=== PATIENT | female | born 1955 | race Caucasian/White ===

== ENCOUNTER 2021-02-14 10:18 | Outpatient (CLI) | payer MEDICARE, SELFPAY ==
[2021-02-14 10:38] LABS: Add Urine Microscopic? YES; Appearance Urine Clear (Clear); Bilirubin Urine Negative (Negative); Blood Urine Negative (Negative); Color Urine Red (Yellow); Glucose Urine UA Negative (Negative); Ketones Urine Trace (Negative); Leukocyte Esterase Ur 2+ LEU/UL (Negative); Nitrate Urine Negative (Negative); Protein Urine Trace (Negative); Specific Grav Ur 1.025 (1.010-1.020); Urobilinogen Urine 0.2 mg/dL (0.2-1.0)
[2021-02-14 10:46] LABS: Bacteria Urine 1+ /hpf; RBC Urine None seen /hpf (0-2); Squamous Epithelial Cell Urine Few /hpf (Few)
[2021-02-14 10:52] LABS: Hemoglobin A1C 6.1 % (<5.7)
[2021-02-14 11:17] LABS: Alanine Aminotransferase 38 U/L (14-59); Albumin Level 4.1 g/dL (3.4-5.0); Alkaline Phosphatase 95 U/L (46-116); Anion Gap 14 mmol/L (8-16); Aspartate Amino Transferase 17 U/L (15-37); Bilirubin,Total 0.9 mg/dL (0.00-1.00); Blood Urea Nitrogen 12 mg/dL (7-18); Calcium 8.7 mg/dL (8.5-10.1); Carbon Dioxide 27 mmol/L (21-32); Chloride 104 mmol/L (98-108); Cholesterol 208 mg/dL (0-200); Estimated Glomerular Filt Rate > 60; Glucose 128 mg/dL (70-99); HDL Direct 75 mg/dL (40-60); LDL Cholesterol Calculated 110 mg/dL (<130); Osmolality Calculated 301 mOsm/kg (285-295); Potassium 4.2 mmol/L (3.5-5.1); Sodium 145 mmol/L (136-145); Total Protein 7.3 g/dL (6.4-8.2); Triglycerides 113 mg/dL (0-150)
== END 2021-02-14 10:19 | disposition home or self-care (01) ==
LOC: CHSLAB 10:22
PROVIDERS: PCP Family Medicine; Visit Provider Nurse Practitioner Family
DX: E11.9 Type 2 diabetes mellitus without complications (principal); N39.41 Urge incontinence
CPT/HCPCS: 36415; 80053; 80061; 81001; 83036; 87086; 87088

== ENCOUNTER 2021-02-18 08:18 | Outpatient (CLI) | payer MEDICARE, SELFPAY ==
--- NOTE | ~2021-02-18 | MM_ITS ---
EXAMINATION: MM screening radha BI w debi HISTORY: Screening mammogram TECHNIQUE: Craniocaudal and mediolateral oblique 3-D tomosynthesis images were obtained and synthetic 2-D images were generated. CAD analysis was submitted and interpreted. COMPARISON: 05/03/2018 diagnostic left mammogram and left breast ultrasound examination 04/20/2018 bilateral digital screening mammogram BREAST PARENCHYMAL COMPOSITION: There are scattered areas of fibroglandular density. FINDINGS: There is no evidence of suspicious mass, calcification, or architectural distortion to sugg est malignancy in either breast. There has been no suspicious interval change. IMPRESSION: 1. No mammographic evidence of malignancy. 2. Recommend routine screening mammography in one year. BI-RADS Category 1: Negative Reviewed, dictated and finalized at location A.
== END 2021-02-18 08:19 | disposition home or self-care (01) ==
LOC: CHSIMG 08:20
PROVIDERS: PCP Family Medicine; Visit Provider Family Medicine
DX: Z12.31 Encounter for screening mammogram for malignant neoplasm of breast (principal)
CPT/HCPCS: 77063; 77067

== ENCOUNTER 2021-05-14 14:09 | Outpatient (CLI) | payer MEDICARE, SELFPAY ==
--- NOTE | 2021-05-14 14:12 | ECG_ITS ---
Measurements Intervals [place] Rate: 73 P: 75 [place]: 174 QRS: 75 QRSD: 83 T: 63 QT: 375 QTc: 415 Interpretive Statements SINUS RHYTHM BASELINE ARTIFACT- I, II, III NORMAL ECG Electronically Signed On 05-14-2021 15:09:19 CDT by Napoleon Ponce D.O.
[2021-05-14 14:24] LABS: Basophils Absolute Auto 0.05 K/mm3 (0.00-0.10); Basophils Percent Auto 0.6 % (0.0-1.0); Eosinophils Absolute Auto 0.25 K/mm3 (0.02-0.50); Eosinophils Percent Auto 3.2 % (1.0-6.0); Hematocrit 46.1 % (35.0-42.0); Hemoglobin 15.3 g/dL (11.7-13.8); Immature Granulocyte Absolute 0.01 K/mm3 (0.00-0.00); Immature Granulocyte Percent A 0.1 % (0.0-0.0); Lymphocytes Absolute Auto 2.41 K/mm3 (1.10-4.50); Mean Corpuscular HGB Conc 33.2 g/dL (32.0-36.0); Mean Corpuscular Hemoglobin 30.3 pg (27.0-31.0); Mean Corpuscular Volume 91.3 fL (78.0-102.0); Mean Platelet Volume 9.4 fl (9.2-11.8); Monocytes Absolute Auto 0.53 K/mm3 (0.10-0.90); Monocytes Percent Auto 6.8 % (2.0-11.0); Neutrophils Absolute Auto 4.5 K/mm3 (1.7-7.2); Neutrophils Percent Auto 58.3 % (50.0-70.0); Platelet Count Result 280 K/mm3 (150-420); Red Blood Count 5.05 M/mm3 (4.20-5.40); Red Cell Distribution Width 12.6 % (11.6-14.4); White Blood Count 7.8 K/mm3 (4.8-10.8)
[2021-05-14 14:59] LABS: Hemoglobin A1C 6.2 % (<5.7)
[2021-05-14 15:02] LABS: Alanine Aminotransferase 47 U/L (14-59); Albumin Level 4.4 g/dL (3.4-5.0); Alkaline Phosphatase 101 U/L (46-116); Anion Gap 11 mmol/L (8-16); Aspartate Amino Transferase 14 U/L (15-37); Bilirubin,Total 0.8 mg/dL (0.00-1.00); Blood Urea Nitrogen 14 mg/dL (7-18); Calcium 9.1 mg/dL (8.5-10.1); Carbon Dioxide 28 mmol/L (21-32); Chloride 105 mmol/L (98-108); Cholesterol 234 mg/dL (0-200); Estimated Glomerular Filt Rate 50; Glucose 95 mg/dL (70-99); HDL Direct 74 mg/dL (40-60); LDL Cholesterol Calculated 132 mg/dL (<130); Osmolality Calculated 298 mOsm/kg (285-295); Potassium 4.1 mmol/L (3.5-5.1); Sodium 144 mmol/L (136-145); Total Protein 7.7 g/dL (6.4-8.2); Triglycerides 140 mg/dL (0-150)
== END 2021-05-14 14:10 | disposition home or self-care (01) ==
LOC: CHSLAB 14:12
PROVIDERS: PCP Nurse Practitioner Family; Visit Provider Nurse Practitioner Family
DX: E11.9 Type 2 diabetes mellitus without complications (principal); Z01.818 Encounter for other preprocedural examination; E78.5 Hyperlipidemia, unspecified
CPT/HCPCS: 36415; 80053; 80061; 83036; 85025; 93005

== ENCOUNTER 2023-09-09 09:38 | Outpatient (CLI) | payer MEDICARE, SELFPAY ==
--- NOTE | ~2023-09-09 | CT_ITS ---
CT of the Abdomen and Pelvis: Indication: Abdominal pain Technique: 2.5 mm axial scans were obtained through the abdomen and pelvis following intravenous adm inistration of 100 cc of Omnipaque 350. Dose reduction technique was used on this scan by utilizing a utomated exposure control and iterative reconstruction technique. The dose-length product (DLP) was 8 40.72 mGy-cm. Findings: Scans through the lung bases are unremarkable. The liver, spleen, pancreas, gallbladder, and kidneys are within normal limits. There is a 2.5 cm lef t adrenal nodule, as well as a smaller 1.1 cm left adrenal nodule. There are at least 2 right adrenal nodule measuring approximately 1 cm in greatest diameter. No evidence of aortic aneurysm. No lympha denopathy. There is inflammatory change and wall thickening centered about a sigmoid diverticulum, compatible wi th acute diverticulitis. No abscess or free air. No bowel obstruction. Images through the pelvis were performed. Urinary bladder unremarkable. No definite adnexal mass seen . Questionable prominence of the endometrial stripe. Impression: Acute sigmoid diverticulitis. No abscess or free air. Multiple bilateral adrenal nodules, indeterminate by Hounsfield units. Statistically, these are most likely adrenal adenomas. Consider noncontrast MR to attempt to confirm, as indicated. Questionable prominence of the endometrium. Consider pelvic ultrasound to further evaluate for endome trial thickening. Reviewed, dictated and finalized at [facility]. CHANGER Impression: Acute sigmoid diverticulitis. No abscess or free air. Multiple bilateral adrenal nodules, indeterminate by Hounsfield units. Statisti alana, these are most likely adrenal adenomas. Consider noncontrast MR to attem pt to confirm, as indicated. Questionable prominence of the endometrium. Consider pelvic ultrasound to furth er evaluate for endometrial thickening.
[2023-09-09 09:50] LABS: Basophils Absolute Auto 0.06 K/mm3 (0.00-0.10); Basophils Percent Auto 0.6 % (0.0-1.0); Eosinophils Absolute Auto 0.26 K/mm3 (0.02-0.50); Eosinophils Percent Auto 2.8 % (1.0-6.0); Hematocrit 45.8 % (35.0-42.0); Hemoglobin 15.6 g/dL (11.7-13.8); Immature Granulocyte Absolute 0.02 K/mm3 (0.00-0.00); Immature Granulocyte Percent A 0.2 % (0.0-0.0); Lymphocytes Absolute Auto 1.81 K/mm3 (1.10-4.50); Lymphocytes Percent Auto 19.5 % (18.0-42.0); Mean Corpuscular HGB Conc 34.1 g/dL (32.0-36.0); Mean Corpuscular Hemoglobin 30.5 pg (27.0-31.0); Mean Corpuscular Volume 89.5 fL (78.0-102.0); Mean Platelet Volume 9.1 fl (9.2-11.8); Monocytes Percent Auto 5.4 % (2.0-11.0); Neutrophils Absolute Auto 6.6 K/mm3 (1.7-7.2); Neutrophils Percent Auto 71.5 % (50.0-70.0); Platelet Count Result 311 K/mm3 (150-420); Red Blood Count 5.12 M/mm3 (4.20-5.40); Red Cell Distribution Width 12.1 % (11.6-14.4); White Blood Count 9.3 K/mm3 (4.8-10.8)
[2023-09-09 10:54] LABS: Alanine Aminotransferase 27 U/L (14-59); Alkaline Phosphatase 109 U/L (46-116); Anion Gap 11 mmol/L (8-16); Aspartate Amino Transferase 18 U/L (15-37); Bilirubin,Total 1.2 mg/dL (0.00-1.00); Blood Urea Nitrogen 13 mg/dL (7-18); CRP 4.1 mg/dL (0.0-0.9); Carbon Dioxide 29 mmol/L (21-32); Chloride 101 mmol/L (98-108); Estimated Glomerular Filt Rate 48; Glucose 172 mg/dL (70-99); Lipase 24 U/L (16-77); Osmolality Calculated 296 mOsm/kg (285-295); Potassium 4.3 mmol/L (3.5-5.1); Sodium 141 mmol/L (136-145); Total Protein 7.7 g/dL (6.4-8.2)
== END 2023-09-09 09:39 | disposition home or self-care (01) ==
PROVIDERS: PCP Family Medicine; Visit Provider Family Medicine
DX: R10.9 Unspecified abdominal pain (principal); R35.0 Frequency of micturition; K57.92 Diverticulitis of intestine, part unspecified, without perforation or abscess without bleeding; E27.9 Disorder of adrenal gland, unspecified
CPT/HCPCS: 36415; 74177; 80053; 83690; 85025; 86140; 87086; 87088; Q9967

== ENCOUNTER 2023-10-15 07:25 | Outpatient (CLI) | payer MEDICARE, SELFPAY ==
--- NOTE | ~2023-10-15 | US_ITS ---
Pelvic ultrasound. Clinical History: Thickened endometrial complex Technique: Realtime transabdominal scanning of the pelvis was performed. Color flow Doppler and Doppl er spectral analysis were performed. Findings: The uterus is anteverted. The endometrial stripe is poorly delineated, possibly measuring up to approximately 17 mm. No focal mass is identified. The right ovary measures 2.9 x 1.8 x 2.3 cm. No significant right ovarian or adnexal mass is seen. The left ovary is not visualized. No significant left ovarian or adnexal mass is seen. There is no evidence of free fluid in the cul de sac. Impression: Probable thickened endometrial stripe, measuring up to approximate 17 mm. Endometrial hyperplasia or endometrial neoplasm are considerations. Reviewed, dictated and finalized at location M. Impression: Probable thickened endometrial stripe, measuring up to approximate 17 mm. Endom etrial hyperplasia or endometrial neoplasm are considerations.
--- NOTE | ~2023-10-15 | MR_ITS ---
EXAMINATION: MR abdomen wo con DATE: 10/15/2023 08:54 INDICATION: Abdominal pain. Disorder of adrenal gland. TECHNIQUE: Magnetic resonance imaging (MRI) of the abdomen was performed without intravenous contrast . Sequences included coronal T2-weighted SS-FSE, coronal and axial FS 2D-FIESTA, axial STIR FSE, axi al T2-weighted SS-FSE, axial T2-weighted FS SS-FSE, axial diffusion-weighted SE, axial dual-echo T1-w eighted FSPGR, and axial and coronal T1-weighted LAVA. COMPARISON: CT dated 09/09/2023 FINDINGS: Heart size is normal. No pericardial or pleural effusion. Liver, gallbladder, spleen, pancreas and ri ght kidney are normal. 12 mm parapelvic cyst at the left renal hilum. 2.2 x 2.0 cm left adrenal mass with signal dropout on opposed phase images consistent with adrenal adenoma. There is also signal rosendo pout consistent with adenomas associated with the pair of smaller approximately 1 cm right adrenal no dules. Bowels are unremarkable with no obstruction. Normal appendix. No pathologically enlarged abdom inal or upper pelvic lymphadenopathy. Mild lumbar levocurvature with mild spondylosis. IMPRESSION: 1. Bilateral adrenal adenomas with diagnostic signal dropout on opposed phase imaging. Reviewed, dictated and finalized at location A. IMPRESSION: 1. Bilateral adrenal adenomas with diagnostic signal dropout on opposed phase i maging.
== END 2023-10-15 07:26 | disposition home or self-care (01) ==
LOC: CHSIMG 07:26
PROVIDERS: PCP Family Medicine; Visit Provider Family Medicine
DX: R93.89 Abnormal findings on diagnostic imaging of other specified body structures (principal); E27.8 Other specified disorders of adrenal gland
CPT/HCPCS: 74181; 76856

== ENCOUNTER 2023-12-07 05:50 | Day surgery (SDC) | payer MEDICARE, SELFPAY ==
[2023-09-24 14:18] VITALS: BMI 32.8
[2023-12-07 06:27] VITALS: BMI 32.6
[2023-12-07 06:30] VITALS: BP 142/95; PULSE 70; RESP 16; TEMP 36.2; O2SAT 99
--- NOTE | 2023-12-07 07:30 | PM.IMHP ---
H&P: HPI History of Present Illness Date/Time: 12/07/23 07:30 Chief Complaint: diverticulitis Narrative: 68 yo woman presents for colonoscopy. She has had cologuard tests before but never a colonoscopy. Denies hematochezia/melena. No fam hx colon cancer. Review of Systems Review of Systems: All systems reviewed & are unremarkable except as noted in HPI and below Constitutional: Constitutional: Denies chills, Denies fever(s), Denies headache(s) and Denies weight loss Eyes: Eyes: Denies change in vision ENT: Denies dizziness, Denies headache(s), Denies neck mass and Denies throat swelling Cardiovascular: Cardiovascular: Denies chest pain, Denies lightheadedness and Denies dyspnea Respiratory: Respiratory: Denies cough, Denies dyspnea and Denies wheezing Gastrointestinal: Gastrointestinal: Denies abdominal pain, Denies change in bowel habits, Denies nausea and Denies vomiting Genitourinary: Genitourinary: Denies hematuria and Denies dysuria Musculoskeletal: Musculoskeletal: Reports as per HPI Integumentary/Breasts: Skin/Breast: Reports as per HPI Neurologic: Denies dizziness and Denies headache(s) Allergic/Immunologic: Allergic/Immunologic: Denies throat swelling and Denies wheezing PMFSH Past Medical History Medical History Breast mass in female (04/22/18) Closed fracture of base of fifth metatarsal bone of right foot (06/15/15) Hyperlipidemia (04/26/18) Retinal detachment of right eye with multiple breaks surgically reattached: Dr. Edi Givens Occurred summer() 2020 Skin tags, multiple acquired Family History Family History Mother Bone cancer Father , from old age. 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 Spiritual care concerns: No Meds Home Medications and Allergies Home Medications Medication Instructions Recorded Confirmed Type multivitamin 1 tablet PO DAILY 08/20/21 12/07/23 History Allergies Allergy/AdvReac Type Severity Reaction Status Date / Time hydrocodone AdvReac Mild Dizziness Verified 12/07/23 06:18 Vital Signs Vital Signs - 24 hr 12/07/23 06:30 Temperature 36.2 C L Pulse Rate 70 Respiratory Rate 16 Blood Pressure 142/95 H Pulse Oximetry 99 Oxygen Delivery Room Air Exam Const: General: no acute distress and alert Orientation/consciousness: patient oriented x3 HENMT: Head: normocephalic and atraumatic Ears: hearing grossly normal bilaterally Face/Nose/Sinus: Normal nares present Mouth: Yes Normal oral and palatal mucosa present Eyes: Periorbital: periorbital findings normal Sclera: sclerae normal EOM: EOMs intact bilaterally Neck: Neck: normal visual inspection, no lymphadenopathy and trachea midline Chest: Chest palpation & inspection: normal inspection of the chest Resp: Effort & Inspection: normal respiratory effort Auscultation: clear to auscultation bilaterally Cardio: Jugular venous distension: no JVD Rate: regular rate Rhythm: regular rhythm Heart sounds: S1 normal heart sound present and S2 normal heart sound present Peripheral pulses: Peripheral pulses 2+ throughout GI: Inspection: normal to inspection GI Palp: Yes Soft to palpation, No Tenderness to palpation present (GI), No Guarding due to palpation present (GI) and No Rebound tenderness
[2023-12-07] MEDS: LACTATED RINGERS 1,000 ML 150 ML IV CONT (07:35)
--- NOTE | 2023-12-07 07:36 | WPDANESEPPF ---
Anes - Initial Pre Proc Eval Procedure: Operation Date: 12/07/23 07:30 Proposed Procedures p Diagnostic Colonoscopy - Bari Bear DO Date/Time: 12/07/23 07:36 Surgeon: Bari Bear DO Pre Op Diagnosis: Diverticulitis w/o perforation or abscess wo bleed Patient Data Age: 68 Gender: F Height: 1.65 m Weight: 89.1 kg Last Vital Signs Temp 36.2 C L 12/07/23 06:30 Pulse 70 12/07/23 06:30 Resp 16 12/07/23 06:30 BP 142/95 H 12/07/23 06:30 Pulse Ox 99 12/07/23 06:30 O2 Del Method Room Air 12/07/23 06:30 Allergies Allergy/AdvReac Type Severity Reaction Status Date / Time hydrocodone AdvReac Mild Dizziness Verified 12/07/23 06:18 Home Medications Medication Instructions Recorded Confirmed Type multivitamin 1 tablet PO DAILY 08/20/21 12/07/23 History Patient hx anesthesia problems: none Family hx anesthesia problems: none Results Review: All pre-operative results and documents have been reviewed as part of the pre-operative evaluation. [facility] Past Medical History Medical History Breast mass in female (04/22/18) Closed fracture of base of fifth metatarsal bone of right foot (06/15/15) Hyperlipidemia (04/26/18) Retinal detachment of right eye with multiple breaks surgically reattached: Dr. Edi Givens Occurred summer() 2020 Skin tags, multiple acquired Family History Family History Mother Bone cancer Father , from old age. 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 Informed Consent: The patient's anesthetic plan and its attendant risks and benefits were discussed with the patient/family/POA. Questions were solicited and answers provided to the satisfaction of the patient/family/POA.
[2023-12-07 08:00] VITALS: BP 127/72; PULSE 72; RESP 16; O2SAT 94
[2023-12-07 08:10] VITALS: BP 110/70; PULSE 77; RESP 16; O2SAT 100
[2023-12-07 08:20] VITALS: BP 106/67; PULSE 57; RESP 16; O2SAT 100
--- NOTE | 2023-12-07 09:09 | WPDANESPN ---
Anes - Prog Note Post-Op Date/Time: 12/07/23 09:09 Cardiovascular status: normal Respiratory status: normal Airway patency: baseline Mental status: baseline Post-Op hydration status: normal Vital Signs: Last Vital Signs Temp 36.2 C L 12/07/23 06:30 Pulse 57 L 12/07/23 08:20 Resp 16 12/07/23 08:20 BP 106/67 12/07/23 08:20 Pulse Ox 100 12/07/23 08:20 O2 Del Method Room Air 12/07/23 08:20 Pain Score (VAS): 0 I/O: Intake & Output 12/06/23 12/07/23 12/07/23 23:59 07:59 15:59 Intake Total 300 300 Balance 300 300 Patient Feedback: Patient satisfied with anesthetic care.
== END 2023-12-07 08:39 | disposition home or self-care (01) ==
PROVIDERS: PCP Family Medicine; Visit Provider Surgery
PROC: 0DJD8ZZ Inspection of Lower Intestinal Tract, Via Natural or Artificial Opening Endoscopic (ICD-10-PCS; CPT 45378; principal; 2023-12-07 07:30)
DX: K57.92 Diverticulitis of intestine, part unspecified, without perforation or abscess without bleeding (principal); K57.30 Diverticulosis of large intestine without perforation or abscess without bleeding
CPT/HCPCS: 45378

== ENCOUNTER 2023-12-16 00:23 | Day surgery (SDC) | payer MEDICARE, SELFPAY ==
[2023-12-02 11:24] VITALS: BMI 33.9
--- NOTE | 2023-12-02 11:44 | PC.NURSE ---
Report to the Outpatient Waiting Room, entrance under the green pavilion located off [facility], at time __6:00AM on date __12/16/23 . Planned Procedure Time: ___7:30AM . Time changes happen often and if your time is changed the preop area will call you the afternoon before. - You and your visitor will be asked to self-screen and do not enter if you have any COVID symptoms. - A mask is optional within the hospital at this time. Patients may have clear liquids (water, carbonated beverages, clear teas, apple juice) until 3 hours prior to surgery with a maximum of 20 ounces. - No food from midnight until time of surgery - Infants may have breast milk until 4 hours before surgery, infant formula 6 hours prior to surgery. - Children will be allowed to drink immediately following surgery. If applicable, please bring a bottle or sippy cup to assist with drinking. Juice, water, soda, and popsicles are readily available. For infants on formula, please bring formula the day of surgery. Pacifiers are allowed. Take the following medications with a SIP of water the morning of surgery: ___NONE DO NOT STOP ANY OF YOUR OTHER PRESCRIPTION MEDICATIONS PRIOR TO SURGERY ?EXCEPT THE FOLLOWING Medications to discontinue per physician ___HOLD ALL VITAMINS/SUPPLEMENTS 3 DAYS PRE-OP PER ANESTHESIA Date to take last dose 12/12/23 Please no make-up, nail urdu, hairspray, perfume, deodorant, or body powder the day of surgery. No jewelry (including any body piercings) or valuables the day of surgery, leave them at home. Please take a shower or bath the night before, or the morning of, surgery with an antibacterial soap. Wear comfortable, loose fitting clothing. Children are encouraged to wear pajamas. - Jewelry must be removed prior to entering the operating room. Rings and piercings that are not removed may be cut off. - The hospital will not accept responsibility for valuables. - Please leave all valuables, including medications, at home the day of surgery. If you are going home after surgery, a licensed sanitation truck driver must drive you home. - NO public transportation without another adult if you receive anesthesia. - We recommend that an adult stay with you for 24 hours following discharge. - We also recommend that you do not drive, make important decision, drink alcoholic beverages, or take any drugs that were not prescribed by your health care provider for at least 24 hours after your discharge time. For Pediatric surgeries, we recommend two adults accompany the child home. Follow any additional instructions given to you from your surgeon. If you or anyone in your household have experienced Covid symptoms in the past week, please notify your surgeon or the nurse liaison at the phone number below for possible testing. Telephone instructions given to ____PATIENT and asked if any additional questions and then verbalized understanding. Patient advised to call surgeon office or pre surgery nurse liaison [phone] if any additional questions.
[2023-12-16 06:30] VITALS: BP 161/98; PULSE 49; RESP 14; TEMP 36.3; O2SAT 100
[2023-12-16] MEDS: LACTATED RINGERS 1,000 ML 30 ML IV CONT ×2 (06:30→08:09)
[2023-12-16] MEDS: ACETAMINOPHEN 500 MG TABLET 1000 MG PO (06:30)
--- NOTE | 2023-12-16 06:45 | WPDANESEPPF ---
Anes - Initial Pre Proc Eval Procedure: Operation Date: 12/16/23 07:30 Proposed Procedures p Hysteroscopy Dilation and Curettage with Removal of Any Endometrial Lesions, if Necessary - Martín Rodriguez MD Date/Time: 12/16/23 06:45 Surgeon: Martín Rodriguez MD Pre Op Diagnosis: Abnormal Finding on Ultrasound Patient Data Age: 68 Gender: F Height: 1.64 m Weight: 91 kg Allergies Allergy/AdvReac Type Severity Reaction Status Date / Time hydrocodone AdvReac Mild Dizziness Verified 12/07/23 06:18 Home Medications Medication Instructions Recorded Confirmed Type multivitamin 1 tablet PO DAILY 08/20/21 12/07/23 History Patient hx anesthesia problems: none Family hx anesthesia problems: none Results Review: All pre-operative results and documents have been reviewed as part of the pre-operative evaluation. [facility] Past Medical History Medical History Breast mass in female (04/22/18) Closed fracture of base of fifth metatarsal bone of right foot (06/15/15) Hyperlipidemia (04/26/18) Retinal detachment of right eye with multiple breaks surgically reattached: Dr. Edi Givens Occurred summer() 2020 Skin tags, multiple acquired Family History Family History Mother Bone cancer Father , from old age. 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 ) Neurological: alert and oriented Last oral intake: >/= 8 hours ASA classification: II Emergent: no Anesthetic plan: delay Anesthesia type and monitoring: general GIVS and standard monitoring Results Review: All pre-operative results and documents have been reviewed as part of the pre-operative evaluation. Informed Consent: The patient's anesthetic plan and its attendant risks and benefits were discussed with the patient/family/POA. Questions were solicited and answers provided to the satisfaction of the patient/family/POA.
--- NOTE | 2023-12-16 07:17 | WPDHPUPDATE1 ---
History and Physical Update Update Date/Time: 12/16/23 07:17 History and Physical has been reviewed, including an updated exam of the patient. There are NO changes in the patient's condition. Risks, benefits, and alternatives have been discussed and questions answered. Patient agrees to proceed with procedure. Will proceed with dilation and curettage and hysteroscopy and removal of any endometrial lesion if present.
[2023-12-16] MEDS: ceFAZolin 2 GM/D5W 50 ML 2 GM/50 ML BAG IVPB (07:28)
[2023-12-16] MEDS: LIDOCAINE HCL 1% LOCAL INJ 20 ML VIAL 10 ML INFILTRATE (07:38)
--- NOTE | 2023-12-16 07:57 | W.PM.PROC2 ---
Procedure Note - Detailed Date of Procedure 12/16/23 Pre-op Diagnosis Abnormal Finding on Ultrasound Post-op Diagnosis Other (2. Endometrial polyp 3. Endocervical polyp) Procedure Performed 1. Hysteroscopy with removal of endometrial lesion 2. Cervical polypectomy Surgeon Martín Rodriguez MD Anesthesia MAC and Local Indications Abnormal ultrasound finding. Findings 1cm cervical polyp, large endometrial lesion consistent with endometrial polyp, the rest of the cavity was atrophic Description of Procedure After informed consent was obtained patient was taken to the operating room and adequate IV sedation was administered. Attention was turned to the vagina. Speculum was inserted. Single-tooth tenaculum placed on the anterior lip of the cervix. 10cc of 1% lidocaine injected at cervicovaginal interface. The uterus was sounded to 6 cm. The cervix was dilated to a 4 payan dilator. The hysteroscope was inserted into the cavity. There was a large endometrial polyp in the uterine cavity. The polyp was removed with the Aveta instrument. Minimal tissue obtained with curettage. The hysteroscope was removed. The hysteroscope was removed the single-tooth tenaculum was removed hemostasis was noted at the tenaculum site. Sponge count correct. The patient taken to recovery in stable condition. Estimated Blood Loss 5 Drains No Packing No Pathology Yes (1. cervical polyp 2. Endometrial shavings/curettage) Complications No immediate complications Condition Stable Disposition Same day [facility] Billing Surgery - Charge Forward: Surgery Billing
[2023-12-16 08:00] VITALS: BP 130/57; PULSE 67; RESP 12; O2SAT 93
[2023-12-16 08:30] VITALS: BP 151/72; PULSE 49
== END 2023-12-16 08:55 | disposition home or self-care (01) ==
PROVIDERS: PCP Family Medicine; Visit Provider Obstetrics & Gynecology
PROC: 0U5B8ZZ Destruction of Endometrium, Via Natural or Artificial Opening Endoscopic (ICD-10-PCS; CPT 58563; principal; 2023-12-16 07:30)
DX: N84.1 Polyp of cervix uteri (principal); N84.0 Polyp of corpus uteri; Z87.891 Personal history of nicotine dependence; E66.9 Obesity, unspecified; Z68.33 Body mass index [BMI] 33.0-33.9, adult
CPT/HCPCS: 58558; 88305; A9270; J0690; J2405; J2704; J3010; J7120

== ENCOUNTER 2025-03-22 12:21 | Outpatient (CLI) | payer MEDICARE, SELFPAY ==
--- NOTE | ~2025-03-22 | XR_ITS ---
EXAMINATION: XR foot RT min 3V DATE: 03/22/2025 12:35 INDICATION: Pain in right foot TECHNIQUE: 4 images of the right foot were obtained. COMPARISON: None. FINDINGS: Mild joint space narrowing in the first metatarsophalangeal joint with adjacent soft tissue swelling. Bones appear osteopenic. No fracture. No dislocation. Moderate-sized plantar calcaneal spur. Moderate-sized dorsal spurs in the hindfoot with adjacent soft tissue swelling. IMPRESSION: 1. No fracture. No dislocation. 2. Mild joint space narrowing in the first metacarpophalangeal joint. 3. Moderate-sized plantar calcaneal spur. If symptoms persist or worsen, consider a short-term follow-up study or additional imaging for further assessment. Reviewed, dictated and finalized at location Q. IMPRESSION: 1. No fracture. No dislocation. 2. Mild joint space narrowing in the first metacarpophalangeal joint. 3. Moderate-sized plantar calcaneal spur. If symptoms persist or worsen, consider a short-term follow-up study or additio nal imaging for further assessment.
== END 2025-03-22 12:22 | disposition home or self-care (01) ==
LOC: CHSIMG 12:22
PROVIDERS: PCP Family Medicine; Visit Provider Family Medicine
DX: I10 Essential (primary) hypertension (principal); M79.671 Pain in right foot; M77.31 Calcaneal spur, right foot
CPT/HCPCS: 73630

== ENCOUNTER 2025-05-02 11:33 | Outpatient (CLI) | payer MEDICARE, SELFPAY ==
[2025-05-02 11:46] LABS: Hematocrit 44.5 % (35.0-42.0); Hemoglobin 14.7 g/dL (11.7-13.8); Immature Granulocyte Percent A 0.2 % (0.0-0.0); Lymphocytes Absolute Auto 2.05 K/mm3 (1.10-4.50); Mean Corpuscular HGB Conc 33.0 g/dL (32-36); Mean Corpuscular Hemoglobin 30.1 pg (27.0-31.0); Mean Corpuscular Volume 91.2 fL (78.0-102.0); Nucleated Red Blood Cells Absolute Auto 0.00 K/mm3 (0.00-0.00); Nucleated Red Blood Cells Perc 0.0 % (0-0.0); Platelet Count Result 245 K/mm3 (150-420); Red Blood Count 4.88 M/mm3 (4.20-5.40); White Blood Count 5.8 K/mm3 (4.8-10.8)
[2025-05-02 12:02] LABS: MALB Creatinine Ratio 6.4 mg/g (0-30)
[2025-05-02 12:16] LABS: Hemoglobin A1C 10.0 % (<5.7)
--- OUTSIDE RECORDS SUMMARY | 2025-05-02 12:50 | XMS_ITS | Clinical Summary ---
Author Organization [facility] Address [address] [place] [address] Care Team Providers Care Fundraising Sale Representative Name Role Phone Chivo Ludwig DO Primary Care Provider Allergies No known active allergies Medications Multiple Vitamin (MULTIVITAMIN ADULT OR)Indications: Nutritional Support Take 1 tablet by mouth daily. Indications: Nutritional Support Active NON FORMULARYIndica tions:Insomnia Take 1 tablet by mouth as needed. Indications: Trouble Sleeping THC tab for sleep Active Active Problems No known active problems Family History Medical History Relation Comments Heart Disease Father Cancer Mother Relation Status Comments Father Mother Alive Social History Tobacco Use Types Packs/Day Years Used Date Smoking Tobacco: Former Cigarettes Smokeless Tobacco: Never Comments:quit late Alcohol Use Standard Drinks/Week Comments Yes 0 (1 standard drink = 0.6 oz pur e alcohol) occ Comments Unknown Sex and Gender Information Value Date Recorded Sex Assigned at Not on file Legal Sex Female 12:02 PM CDT Gender Identity Not on file Sexual Orientation Not on file Last Filed Vital Signs Vital Sign Reading Time Taken Comments Blood Pressure 110/68 05/15/2021 12:20 PM CDT Pulse 66 05/15/2021 12:20 PM CDT Temperature 36 C (96.8 F) 05/15/2021 10:55 AM CDT Respiratory Rate 16 05/15/2021 12:20 PM CDT Oxygen Saturation 97% 05/15/2021 12:20 PM CDT Inhaled Oxygen Concentration - - Weight 90.7 kg (200 lb) 05/14/2021 2:49 PM CDT Height 167.6 cm (5' 6) 05/14/2021 2:49 PM CDT Body Mass Index 32.28 05/14/2021 2:49 PM CDT Plan of Treatment Health Maintenance Due Date Last Done Comments Colorectal Cancer Screening Colonoscopy (10 Years) 1955 Hepatitis C 1971 DTaP, Tdap and Td Vaccines ( 1 - Tdap) 02/10/1972 Mammogram Screening 1993 Pneumococcal Vaccine: 50+ Years (1 of 1 - PCV) 2003 Zoster Vaccines (1 of 2) 2003 Annual Medicare Wellness Visit 2018 Dexa Scan (General) 2018 COVID-19 Vaccine (3 - 2024-2 6 season) 2025 09/21/2020, 08/31/2020 Influenza Adult (#1) 2025 04/12/2020 RSV Immunization or 60+ Years (1 - 1-dose 75+ series) 02/10/2028 Meningococcal B Vaccine Aged Out No l onger eligible based on patient's age to complete this topic Meningococcal Vaccine Aged Out No hayder misti eligible based on patient's age to complete this topic RSV Immunizations Under 20 Months Aged Out No longer eligible b ased on patient's age to complete this topic Medical Devices Implanted Type Area Equipment Operator/Laborer Device Identifier Shelf Expiration Date Model / Serial / Lot Eye Eye Description:Left eye IOL Iol Shaq [id number] - [id number] Implanted:Qt y: 1 on 04/02/2021 by Zana Crawford MD at [facility] Lens Right : Eye SHAQ - SURGICAL DIV 05/10/2025 [id number] / [id number] / N/A Description:Implant verified by Gas [id number] Substitute Vitreous - [id number] Implanted:Qt y: 1 on 05/15/2021 by Edi Givens MD at [facility] Retinal Right : Eye SHAQ - SURGICAL DIV [id number] 08/26/2022 [id number] / / [id number] Insurance MEDICARE [facility] Advance Directives * Full Code (Latest Code Status on File) Date Activated Date Inactivated Comments 05/15/2021 11:56 AM 05/15/2021 2:35 PM Care Teams Fundraising Sale Representative Relationship Specialty Start Date End Date Chivo Ludwig DO [address] [place] [address] PCP - General FAMILY PRACTICE 04/01/21
[2025-05-02 13:10] LABS: Alanine Aminotransferase 35 U/L (6-35); Albumin Level 4.7 g/dL (3.5-5.1); Alkaline Phosphatase 101 U/L (38-126); Anion Gap 9 mmol/L (4-12); Aspartate Amino Transferase 26 U/L (14-36); Bilirubin,Total 1.2 mg/dL (0.2-1.3); Blood Urea Nitrogen 14 mg/dL (7-17); Calcium 9.7 mg/dL (8.4-10.2); Carbon Dioxide 28 mmol/L (22-30); Chloride 103 mmol/L (98-107); Cholesterol 233 mg/dL (0-200); Estimated Glomerular Filt Rate > 60; Glucose 283 mg/dL (65-110); HDL Direct 75 mg/dL; Osmolality Calculated 300 mOsm/kg (285-295); Potassium 5.6 mmol/L (3.4-5.0); Sodium 140 mmol/L (137-145); Total Protein 8.1 g/dL (6.3-8.2); Triglycerides 163 mg/dL (<150)
[2025-05-02 13:41] LABS: Thyroid Stimulating Hormone Reflex 1.300 uIU/mL (0.465-4.68)
== END 2025-05-02 11:34 | disposition home or self-care (01) ==
LOC: CHSLAB 11:34
PROVIDERS: PCP Family Medicine; Visit Provider Family Medicine
DX: E11.9 Type 2 diabetes mellitus without complications (principal); I10 Essential (primary) hypertension; E03.9 Hypothyroidism, unspecified
CPT/HCPCS: 36415; 80053; 80061; 82043; 83036; 84443; 85025

== ENCOUNTER 2025-05-16 09:29 | Outpatient (CLI) | payer MEDICARE, SELFPAY ==
--- NOTE | ~2025-05-16 | DEXA_ITS ---
Bone Density Report Name: DAMARIS JETT Age: 70 Sex: Female Ethnicity: White Date of : 1955 Indication: postmenopausal; screening for osteoporosis; height loss; Referring Provider: Chivo Ludwig Study: Bone densitometry was performed. Exam Date: May 16, 2025 Accession number: [id number] Bone Density: Region BMD T-score Z-score Classification AP Spine(L1-L4) 0.985 -0.6 1.7 Normal Femoral Neck (Left) 0.723 -1.1 0.8 Osteopenia Total Hip (Left) 1.027 0.7 2.3 Normal Femoral Neck (Right) 0.705 -1.3 0.6 Osteopenia Total Hip (Right) 0.964 0.2 1.8 Normal Femoral Neck Mean 0.714 -1.2 0.7 Osteopenia Total Hip Mean 0.995 0.4 2.1 Normal World Health Organization criteria for BMD impression classify patients as: Normal (T-score at or above -1.0), Osteopenia (T-score between -1.0 and -2.5), or Osteoporosis (T-score at or below -2.5). 10-year Fracture Risk(1): Major Osteoporotic Fracture 9.4% Hip Fracture 1.3% Reported Risk Factors: [place] (), Neck BMD=0.705, BMI=33.3 (1) FRAX(R) Version 3.08. Fracture probability calculated for an untreated patient. Fracture probability may be lower if the patient has received treatment. Clinical Information Provided by Patient: Has used the following medications: Vitamin D, Calcium Patient maximum height was 66 Menopause Age: 48 No regular weight bearing exercise Drinks caffeinated beverages Onset of menses at age 11 Number of children 2 Impression: The patient has low bone mass, based on the Right Femoral Neck T-score. Discussion: BONE DENSITY IS LOW AT ONE OR MORE SKELETAL SITES. This patient's lowest T-score is low at one or more skeletal sites. It meets the World Health Organization's (WHO) criteria for ?low bone mass? (T-score between -1.0 and -2.5). The patient's 10-year risk of fracture as calculated by FRAX is less than the threshold where pharmacological therapy is recommended by the National Osteoporosis Foundation (NOF). However, all treatment decisions require clinical judgment and consideration of individual patient factors, including patient preferences, comorbidities, previous drug use, risk factors not captured in the FRAX model (e.g., frailty, falls, vitamin D deficiency, increased bone turnover, interval significant decline in bone density) and possible under or overestimation of fracture risk by FRAX. The patient should follow a healthful lifestyle (good nutrition with adequate calcium and vitamin D, and appropriate weight-bearing exercise). Follow-Up: Consider repeating this study in 2 to 3 years to reassess this patient's status, or sooner if there is some new clinical indication. Reported by: DEONTE on 05/16/2025 11:43:00 AM. Reviewed, dictated and finalized at location A.
--- OUTSIDE RECORDS SUMMARY | 2025-05-16 10:53 | XMS_ITS | Clinical Summary ---
Author Organization [facility] Address [address] [place] [address] Care Team Providers Care Bar Machine Operator Multiple Spindle Name Role Phone Chivo Ludwig DO Primary Care Provider [phone] Allergies No known active allergies Medications Multiple [...] Years (1 - 1-dose 75+ series) 02/10/2028 Hepatitis A Vaccines Aged Out No long er eligible based on patient's age to complete this topic Meningococcal B Vaccine Aged Out No l onger eligible based on patient's age to complete this topic Meningococcal Vaccine Aged Out No hayder misti eligible based on patient's age to complete this topic RSV Immunizations Under 20 Months Aged Out No longer eligible b ased on patient's age to complete this topic Medical Devices Implanted Type Area Post Secondary Professional Device Identifier Shelf Expiration Date Model / Serial / Lot Eye Eye Description:Left eye IOL Iol Shaq [id number] - [id number] Implanted:Qt y: 1 on 04/02/2021 by Zana Crawford MD at [facility] Lens Right : Eye SHAQ - SURGICAL DIV 05/10/2025 [id number] / [id number] / N/A Description:Implant verified by Gas C3f8 Substitute Vitreous - [id number] Implanted:Qt y: 1 on 05/15/2021 by dEi Givens MD at [facility] Retinal Right : Eye SHAQ - SURGICAL DIV [id number] 08/26/2022 [id number] / / [id number] Insurance MEDICARE [facility] Advance Directives * Full Code (Latest Code Status on File) Date Activated Date Inactivated Comments 05/15/2021 11:56 AM 05/15/2021 2:35 PM Care Teams Bar Machine Operator Multiple Spindle Relationship Specialty Start Date End Date Chivo Ludwig DO [address] [place] [address] PCP - General FAMILY PRACTICE 04/01/21
== END 2025-05-16 09:30 | disposition home or self-care (01) ==
PROVIDERS: PCP Family Medicine; Visit Provider Family Medicine
DX: Z78.0 Asymptomatic menopausal state (principal); M85.89 Other specified disorders of bone density and structure, multiple sites
CPT/HCPCS: 77080

== ENCOUNTER 2025-05-24 09:41 | Outpatient (CLI) | payer MEDICARE, SELFPAY ==
[2025-05-25 07:09] LABS: RPR Non Reactive (Non Reactive)
== END 2025-05-24 09:42 | disposition home or self-care (01) ==
LOC: CHSLAB 09:42
PROVIDERS: PCP Family Medicine; Visit Provider Family Medicine
DX: Z20.2 Contact with and (suspected) exposure to infections with a predominantly sexual mode of transmission (principal); Z11.3 Encounter for screening for infections with a predominantly sexual mode of transmission
CPT/HCPCS: 86592